=== PATIENT | male | born 1995 | race Caucasian/White ===

== ENCOUNTER 2022-02-05 08:49 | Emergency (ER) | payer OTHER, SELFPAY ==
[2022-02-05 09:20] VITALS: BP 149/71; PULSE 100; RESP 16; TEMP 36.4; O2SAT 98; BMI 27.8
--- NOTE | 2022-02-05 09:24 | DI.RAD.S_ITS ---
PROCEDURE: XR TOE LT MIN 2V INDICATIONS: stubbed toe TECHNIQUE: 3 views of the great toe(s) acquired. COMPARISON: None. FINDINGS: Bones: No fractures or dislocations. No suspicious bony lesions. Soft tissues: No suspicious soft tissue densities. IMPRESSION: No gross acute left great toe fracture or dislocation. Dictated by: Cristhian Martinez M.D. on 02/05/2022 at 10:06 Approved by: Cristhian Martinez M.D. on 02/05/2022 at 10:07
--- NOTE | 2022-02-05 09:24 | DI.RAD.S_ITS ---
PROCEDURE: XR ANKLE RT MIN 3V INDICATIONS: rolled right ankle, pain TECHNIQUE: 3 views of the ankle were acquired. COMPARISON: [facility], , ANKLE 3 VIEWS RIGHT, 09/06/2007, 22:18. FINDINGS: Bones: No fractures or dislocations. Ankle mortise is normally aligned. No suspicious bony lesions. Soft tissues: No tibiotalar joint effusion. Achilles tendon appears normal. IMPRESSION: No gross acute ankle fracture or dislocation. Ankle mortise is congruent. Dictated by: Cristhian Martinez M.D. on 02/05/2022 at 9:59 Approved by: Cristhian Martinez M.D. on 02/05/2022 at 10:06
--- NOTE | 2022-02-05 09:55 | ED_ITS ---
HPI - Extremity Injury (Lower) General Chief Complaint: Extremity Injury, Lower Stated Complaint: broke left big toe, sprained rt ankle/hamstring Time Seen by Provider: 02/05/22 09:55 Source: patient Mode of arrival: Family Vehicle History of Present Illness HPI Narrative: Patient is a healthy 27-year-old male who presents with left toe pain and right ankle pain. He says he was walking this morning when he tripped over his left toe but try day balance with his right leg thinks he sprained his ankle and his right hamstring. No numbness tingling or weakness. It is difficult to walk. He has not taken anything for pain. Related Data Previous Rx's Medication Instructions Recorded dextroamphetamine-amphetamine ER 25 mg PO DAILY #30 cap 02/03/22 25 mg 24hr capsule,extend release Allergies Allergy/AdvReac Type Severity Reaction Status Date / Time No Known Drug Allergies Allergy Unverified 02/05/22 09:23 Review of Systems Review of Systems Narrative: GENERAL: Denies chills,fever HEENT: Denies throat pain RESPIRATORY: Denies dyspnea, cough, wheezing CARDIOVASCULAR: Denies chest pain, palpitations GASTROINTESTINAL: Denies nausea, vomiting MUSCULOSKELETAL: See HPI SKIN: No rash, no laceration, no pruritus NEUROLOGIC: Denies weakness, dizziness, headache, numbness 8 point review of systems is negative except for those stated above and HPI Patient History Medical History Attention deficit disorder (ADD) Hayfever Social History Smoking Status: Unknown if ever smoked Smoking Status: Unknown if ever smoked alcohol intake frequency: a few times a week Substance Use Type: does not use Exam Initial Vital Signs Initial Vital Signs: Vital Signs Temperature 97.6 F 02/05/22 09:20 Pulse Rate 100 H 02/05/22 09:20 Respiratory Rate 16 02/05/22 09:20 Blood Pressure 149/71 H 02/05/22 09:20 Pulse Oximetry 98 02/05/22 09:20 GENERAL: Well-appearing, well-nourished and in no acute distress. CARDIOVASCULAR: peripheral pulses in tact, cap refill <2 sec RESPIRATORY: No respiratory distress, speaks in full sentences without difficulty EXTREMITIES: Normal range of motion, no clubbing or edema. Neurovascularly intact Left big toe contusion good movement on resistance right ankle mildly swollen Achilles tendon intact his pupils NEUROLOGICAL: Cranial nerves II through XII grossly intact. Normal gait and speech. SKIN: Warm, dry, no petechiae, no rashes or lesions. Course Orders Ordered: ED Orders 02/05/22 09:24 XR ankle RT min 3V Stat XR toe LT min 2V Stat Vital Signs Vital signs: Vital Signs - 8 hr 02/05/22 09:20 02/05/22 10:38 Temperature 97.6 F Pulse Rate 100 H 80 Respiratory Rate 16 18 Blood Pressure 149/71 H 140/70 Pulse Oximetry 98 100 MDM - Extremity Injury (Lower) Imaging Data Extremity x-ray #1: Radiologist's Impression: PROCEDURE:? XR ANKLE RT MIN 3V ? INDICATIONS:? rolled right ankle, pain ? TECHNIQUE:? 3 views of the ankle were acquired.? ? COMPARISON:? [facility], , ANKLE 3 VIEWS RIGHT, 09/06/2007, 22:18. ? FINDINGS:? ? Bones:? No fractures or dislocations.? Ankle mortise is normally aligned.? No suspicious bony lesions.? ? Soft tissues:? No tibiotalar joint effusion.? Achilles tendon appears normal.? ? ? IMPRESSION:? No gross acute ankle fracture or dislocation.? Ankle mortise is congruent. ? Dictated by: Cristhian Martinez M.D. on 02/05/2022 at 9:59 ? ? Approved by: Cristhian Martinez M.D. on 02/05/2022 at 10:06 ? Extremity x-ray #2: Radiologist's Impression: PROCEDURE:? XR TOE LT MIN 2V ? INDICATIONS:? stubbed toe ? TECHNIQUE:? 3 views of the great toe(s) acquired.? ? COMPARISON:? None. ? FINDINGS:? ? Bones:? No fractures or dislocations.? No suspicious bony lesions.? ? Soft tissues:? No suspicious soft tissue densities.? ? IMPRESSION:? No gross acute left great toe fracture or dislocation. ? ? Dictated by: Cristhian Martinez M.D. on 02/05/2022 at 10:06 ? ? Approved by: Cristhian Martinez M.D. on 02/05/2022 at 10:07 [facility] Narrative Medical decision making narrative: Patient has contusion on left toe and right ankle sprain. Fortunately no fractures. He is given orthopedic shoe and crutches. Discharge Plan Departure Patient Disposition: Home Clinical Impression: Contusion of great toe, left, Mild sprain of right ankle Instructions: Ankle Sprain Activity Restrictions/Additional Instructions: *You have been diagnosed with right ankle sprain left toe contusion *What to do: Use orthopedic shoe as needed for left foot use crutches as needed. Elevate and ice as best you can. *Continue to take medications as directed Tylenol 1000 mg every 6 hours if needed for [id number] pain Ibuprofen 600 mg every 6 hours if needed for [id number] pain *Follow up with your primary care provider in 2-3 days or call [phone] *Return to ER if you should have increasing pain weakness or any new, worsening or concerning symptoms Prescriptions: No Action dextroamphetamine-amphetamine 25 mg capsule,extended release 24hr 25 mg PO DAILY Qty: 30 0RF Referrals: Tom Carlos MD [Primary Care Provider] -
[2022-02-05 10:38] VITALS: BP 140/70; PULSE 80; RESP 18; O2SAT 100
== END 2022-02-05 10:40 | disposition home or self-care (01) ==
PROVIDERS: Emergency Provider Emergency Medicine; PCP Student in an Organized Health Care Education/Training Program
DX: S90.112A Contusion of left great toe without damage to nail, initial encounter (principal); S93.401A Sprain of unspecified ligament of right ankle, initial encounter; W18.40XA Slipping, tripping and stumbling without falling, unspecified, initial encounter; Y93.01 Activity, walking, marching and hiking
CPT/HCPCS: 73610; 73660; 99283

== ENCOUNTER 2023-06-19 18:19 | Emergency (ER) | payer OTHER, SELFPAY ==
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
[2023-06-19 18:24] VITALS: BP 147/90; PULSE 85; RESP 18; TEMP 36.7; O2SAT 100; BMI 27.8
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
[2023-06-19] MEDS: HYDROCODONE/ACET 5/325 PREPACK 1 BOTTLE MISC (19:07)
[2023-06-19] MEDS: LIDOCAINE PATCH 1 EACH ADH..PATCH TOP (19:07)
[2023-06-19 19:12] VITALS: PULSE 79; RESP 18; O2SAT 98
== END 2023-06-19 19:19 | disposition home or self-care (01) ==
PROVIDERS: Emergency Provider Emergency Medicine; PCP Student in an Organized Health Care Education/Training Program
DX: R07.81 Pleurodynia (principal); V19.9XXA Pedal cyclist (driver) (passenger) injured in unspecified traffic accident, initial encounter
CPT/HCPCS: 71101; 99283

== ENCOUNTER → 2024-08-01 09:21 | Outpatient (CLI) | payer OTHER, SELFPAY ==
[2024-08-01 10:30] LABS: Add Manual Diff / Slide Review NO; Basophils Absolute Auto 0 /uL (0-100); Basophils Percent Auto 0.6 % (0-2); Eosinophils Absolute Auto 300 /uL (0-450); Eosinophils Percent Auto 4.9 % (2-4); Hematocrit 42.9 % (41-53); Hemoglobin 14.5 g/dL (13.5-17.5); Lymphocytes Absolute Auto 2200 /uL (1100-4500); Lymphocytes Percent Auto 35.8 % (25-40); Mean Corpuscular HGB Conc 33.9 % (30-36); Mean Corpuscular Hemoglobin 28.3 PG (26-34); Mean Corpuscular Volume 83.5 fL (80-100); Monocytes Absolute Auto 400 /uL (0-900); Monocytes Percent Auto 7.2 % (3-14); Neutrophils Absolute Auto 3200 /uL (1500-7000); Neutrophils Percent Auto 51.5 % (50-75); Platelet Count 242 X10^3/uL (150-400); Red Blood Cell Count 5.13 X10^6/uL (4.5-5.9); Red Cell Distribution Width 13.5 % (11.6-14.8); White Blood Cell Count 6.1 X10^3/uL (4.5-11.0)
[2024-08-01 10:52] LABS: Alanine Aminotransferase 145 IU/L (<50); Albumin 4.7 g/dL (3.5-5.0); Albumin Globulin Ratio 1.5 (1.0-2.8); Alkaline Phosphatase 90 U/L (38-126); Aspartate Aminotransferase 54 IU/L (17-59); BUN Creatinine Ratio 17.2 (6-22); Blood Urea Nitrogen 15 mg/dL (9-20); Calcium 9.9 mg/dL (8.4-10.2); Carbon Dioxide 30 mmol/L (22-32); Chloride 101 mmol/L (98-107); Cholesterol 221 mg/dL (140-199); Estimated Glomerular Filt Rate > 60 mL/min (>60); Globulin 3.2 g/dL (1.7-4.1); Glucose 110 mg/dL (70-100); HDL Cholesterol 68 mg/dL (40-60); HEMOLYSIS < 15 (0-50); LDL Cholesterol Calculated 140 mg/dL (<100); Potassium 4.5 mmol/L (3.4-5.1); Sodium 137 mmol/L (137-145); Total Protein 7.9 g/dL (6.3-8.2); Triglycerides 63 mg/dL (35-150)
[2024-08-01 10:58] LABS: Appearance Urine UA CLEAR; Bilirubin Urine UA NEGATIVE (NEGATIVE); Color Urine UA YELLOW; Glucose Urine UA NEGATIVE (Negative); Ketones Urine UA NEGATIVE (NEGATIVE); Leukocyte Esterase Urine UA NEGATIVE (NEGATIVE); Nitrite Urine UA NEGATIVE (Negative); Occult Blood Urine UA NEGATIVE (Negative); Protein Urine UA NEGATIVE (Negative); Specific Gravity Urine UA <=1.005 (1.000-1.035); Urobilinogen Urine UA 0.2 E.U./dL (0.2); pH Urine UA 6.5 (4.5-8.0)
[2024-08-01 11:02] LABS: Urine Volume 10mL (spun)
[2024-08-01 11:04] LABS: Bacteria Urine None Seen; Culture Indicated Urine Cult Not Indicated; RBC Urine None Seen (0-5/HPF); Squamous Epithelial Cell Urine None Seen (0-5/HPF); WBC Urine None Seen (0-5/HPF)
[2024-08-01 11:20] LABS: TSH w/ Reflex to FT4 0.85 uIU/mL (0.47-4.68)
== END ==
PROVIDERS: PCP Family Medicine; Referring Provider Family Medicine; Visit Provider Family Medicine
DX: F98.8 Other specified behavioral and emotional disorders with onset usually occurring in childhood and adolescence (principal); Z83.3 Family history of diabetes mellitus
CPT/HCPCS: 36415; 80053; 80061; 81001; 84443; 85025